=== PATIENT | male | born 1995 | race Caucasian/White ===

== ENCOUNTER 2016-11-17 20:59 | Emergency (ER) | payer BC, OTHER ==
[2016-11-17] MEDS ORDERED: MAG HYDROX/ALUMINUM HYD/SIMETH 30 ML UDC PO ONE (21:33)
[2016-11-17] MEDS ORDERED: BELLADONNA ALKALOIDS/PHENOBARB 60 ML BTL PO ONE (21:33)
[2016-11-17] MEDS ORDERED: LIDOCAINE HCL 20 ML UDC PO ONE (21:33)
--- NOTE | 2016-11-17 21:39 | ERNOTE ---
Chest Pain/Cardiac HPI Date of Service: 11/17/16 Chief Complaint: Chest Pain Time Seen by Provider: 11/17/16 21:39 Source: patient Immunizations: IMMUNIZATION HX Immunizations Up to Date Yes History of Influenza Vaccine Yes Hx Pneumococcal Vaccination No Allergies/Adverse Reactions: Allergies No Known Allergies Allergy (Verified 12/19/15 08:16) Home Medications: HOME MEDICATIONS Pantoprazole Sodium [Protonix] 20 mg PO DAILY #30 tab 11/17/16 [Last Taken Unknown] Narrative: Noted a sharp, mild pain at the lower chest at about 1630 hours, then began to improve. He has had similar pain for several months, but thought that he would just get it checked on this occasion. There was not radiation to the pain, shortness of breath, diaphoresis, N/V. No medications were tried prior to coming to the ED. Denies any heart disease, GERD, or trauma. Timing: intermittent Severity/Quality: mild Location: substernal Chest Pain Radiation: no radiation Activities at Onset: none Modifying Factors - Improves: Present: nothing Modifying Factors - Worsens: Present: nothing Nitro Today/Relief: no nitro taken today Aspirin Treatment Today: no aspirin today Associated Symptoms: Present: denies symptoms Prior Chest Pain/Cardiac Workup: Reports: prior chest pain Review of Systems - Review of Systems Constitutional: Present: no symptoms reported EYE: Present: no symptoms reported ENT: Present: no symptoms reported Respiratory: Present: no symptoms reported Cardiology: Present: no symptoms reported Gastrointestinal/Abdominal: Present: no symptoms reported Genitourinary: Present: no symptoms reported Musculoskeletal: Present: no symptoms reported Skin: Present: no symptoms reported Neurological: Present: no symptoms reported Endocrine: Present: no symptoms reported Hematologic/Lymphatic: Present: no symptoms reported - Patient's Past Medical History Patient History - Medical: No pertinent hx Patient History - Cardiac/Respiratory: No pertinent hx Patient History - Cancer: No Hx of Cancer Patient History - Surgical Procedures: T & A Patient History - Other: None - Social History Living Situations: home Abuse History: No History of abuse Psych History: No pertinent hx Smoking Status: Current every day smoker Have you smoked in the past 12 months: Yes Do you dip or chew tobacco: No Patient requests Smoking Cessation Consult: No Initiate information on Smoking Cessation: No Alcohol Use: occasionally Drug Use: none - Immunizations Immunizations Up to Date: Yes Hx Pneumococcal Vaccination: No History of Influenza Vaccine: Yes Physical Exam - Physical Exam General Appearance: Present: no apparent distress Eye Exam: Normal inspection: bilateral, PERRL: bilateral Ears, Nose, Throat: Present: normal ENT inspection Neck: Present: normal inspection Respiratory: Present: no respiratory distress Cardiovascular/Chest: Present: regular rate, rhythm Gastrointestinal/Abdominal: Present: nontender, nondistended Back Exam: Present: normal inspection Extremity Exam: Present: normal inspection Neurological Exam: Present: alert, oriented, regulator assembler II-XII nml as tested Skin Exam: Present: normal color ED Progress - Results and Orders Patient's Lab Results:: I have reviewed the patient's lab results. - Vital Signs Patient's Vital Signs:: I have reviewed the patient's vital signs. Vital Signs: Vital Signs 11/17/16 21:16 Temperature 36.8 C Pulse Rate 74 Respiratory 15 Rate Blood Pressure 131/65 O2 Sat by Pulse 97 Oximetry - EKG EKG: NSR EKG read: Interp. by me EKG Comments: Rate 73, normal axis. - Progress/Reassessment Chief Complaint: Chest Pain Progress:: Improved Progress Note-Subjective: 11/17/16 23:20 Progressive resolution of the discomfort with the use of the GI cocktail and then Protonix. Asymptomatic at this time. Departure - Departure Clinical Impression: GERD (gastroesophageal reflux disease) Disposition: Home self-care Condition: Good Instructions: Heartburn, [id number] Print Language: Irish Additional Instructions: Try to not eat or drink things that would increase acid in your stomach. Follow up with your physician in 1-2 weeks. Prescriptions: Pantoprazole Sodium [Protonix] 20 mg PO DAILY #30 tab
--- OUTSIDE RECORDS SUMMARY | 2016-11-17 21:47 | XMS REPORT | Continuity of Care Document ---
:1995 Author Organization [facility] ([facility]) Address [address] [place] [address] Phone [phone] Care Team Providers Name Role Phone Sloan Messina Primary Care Provider [phone] Source Comments This disclosure is being made pursuant to the Care Everywhere program, applicable federal and state laws, and may not contain all informaitonavailable regarding this patient.[facility] ([facility]) Active Allergies and Adverse Reactions Not on File Current Medications Not on file Active Problems Not on file Social History Tobacco Use Types Packs/Day Years Used Date Never Assessed Plan of Care Health Maintenance Due Date Last Done Comments Hepatitis B Vaccine (1 of 3 - Primary Series) 1995 HPV Vaccine (1 of 3 - Male 3 Dose Series) 12/20/2006 Tdap Vaccine 12/20/2006 Meningococcal Vaccine (1 of 1) 2011 Lipid Disorder Screening 12/20/2013 MMR Vaccine 12/20/2013 Td Vaccine 12/20/2013 Varicella Vaccine (1 of 2 - Adult - No Evidence of 12/20/2013 Immunity) Influenza Vaccine: Seasonal (#1) 03/05/2016 Results from Last 3 Months Not on file
[2016-11-17] MEDS ORDERED: PANTOPRAZOLE SODIUM 40 MG TABLET.EC PO ONE (22:02)
[2016-11-17] MEDS ORDERED: PANTOPRAZOLE SODIUM 20 MG TABLET.DR ONE (22:05)
[2016-11-17 23:31] VITALS: BP 111/53
== END 2016-11-17 23:29 | disposition home or self-care (01) ==
LOC: ER 20:59
DX: K21.9 Gastro-esophageal reflux disease without esophagitis (principal); F17.210 Nicotine dependence, cigarettes, uncomplicated

== ENCOUNTER 2016-12-09 21:42 | Emergency (ER) | payer BC, OTHER ==
[2016-12-09 21:54] VITALS: BP 135/74
[2016-12-09] MEDS ORDERED: ACETAMINOPHEN 325 MG TABLET ONE (22:09)
[2016-12-09] MEDS ORDERED: ACETAMINOPHEN 325 MG TABLET PO ONE (22:10)
[2016-12-09] MEDS ORDERED: AZITHROMYCIN 250 MG TABLET ONE (22:13)
[2016-12-09] MEDS ORDERED: ALBUTEROL SULFATE/IPRATROPIUM 3 ML NEBU IH ONE ×2 (22:14)
--- NOTE | 2016-12-09 22:14 | ERNOTE ---
Medical Problem HPI - General Chief Complaint: Flu Symptoms Time Seen by Provider: 12/09/16 22:05 Source: patient Exam Limitations: no limitations - Immun/Allergies/Home Medications Immunizations: IMMUNIZATION HX Immunizations Up to Date Yes History of Influenza Vaccine Yes Hx Pneumococcal Vaccination No Allergies/Adverse Reactions: Allergies No Known Allergies Allergy (Verified 12/09/16 21:54) Home Medications: HOME MEDICATIONS Azithromycin 250 mg PO DAILY #1 tablet 12/09/16 [Last Taken Unknown] guaiFENesin/DEXTROMETHORPHAN [Robitussin-Dm] 5 ml PO TID PRN #1 btl 12/09/16 [ Last Taken Unknown] - History of Present History Narrative: cough and congestion and fever for three days, no shortness of breath Review of Systems - Review of Systems Constitutional: Present: no symptoms reported EYE: Present: no symptoms reported ENT: Present: See HPI Respiratory: Present: See HPI Cardiology: Present: no symptoms reported Gastrointestinal/Abdominal: Present: no symptoms reported Genitourinary: Present: no symptoms reported Musculoskeletal: Present: no symptoms reported Skin: Present: no symptoms reported - Patient's Past Medical History Patient History - Medical: No pertinent hx Patient History - Cardiac/Respiratory: Bronchitis Patient History - Cancer: No Hx of Cancer Patient History - Surgical Procedures: T & A Patient History - Other: None - Social History Living Situations: significant other Abuse History: No History of abuse Psych History: No pertinent hx Smoking Status: Current every day smoker Have you smoked in the past 12 months: Yes Do you dip or chew tobacco: Yes Alcohol Use: occasionally Drug Use: none - Immunizations Immunizations Up to Date: Yes Hx Pneumococcal Vaccination: No History of Influenza Vaccine: Yes Physical Exam - Physical Exam General Appearance: Present: wd/wn, alert, no apparent distress Ears, Nose, Throat: Present: normal ENT inspection Neck: Present: normal inspection, nontender Respiratory: Present: lungs clear - however deep inspiration leads to coughing . No wheezing. no respiratory distress, no rales Cardiovascular/Chest: Present: regular rate, rhythm, no murmur, normal peripheral pulses ED Progress - Results and Orders Patient's Lab Results:: I have reviewed the patient's lab results. - Vital Signs Patient's Vital Signs:: I have reviewed the patient's vital signs. Vital Signs: Vital Signs 12/09/16 21:49 Temperature 38.0 C H Pulse Rate 131 H Respiratory 15 Rate Blood Pressure 135/74 O2 Sat by Pulse 97 Oximetry - Progress/Reassessment Chief Complaint: Flu Symptoms Departure - Departure Clinical Impression: Bronchitis Disposition: Home self-care Condition: Good Instructions: Acute Bronchitis Prescriptions: Azithromycin 250 mg PO DAILY #1 tablet guaiFENesin/DEXTROMETHORPHAN [Robitussin-Dm] 5 ml PO TID PRN #1 btl PRN Reason: Cough
--- OUTSIDE RECORDS SUMMARY | 2016-12-09 22:14 | XMS REPORT | Continuity of Care Document ---
:1995 Author Organization [facility] ([facility]) Address [address] [place] [address] Phone [phone] Care Team Providers Name Role Phone Sloan Messina Primary Care Provider [phone] Source Comments This disclosure is being made pursuant to the Care Everywhere program, applicable federal and state laws, and may not contain all informaitonavailable regarding this patient.[facility] ([facility]) Active Allergies and Adverse Reactions Not on [...]
[2016-12-09] MEDS ORDERED: AZITHROMYCIN 250 MG TABLET PO ONE (22:20)
== END 2016-12-09 22:32 | disposition home or self-care (01) ==
LOC: ER 21:42
DX: J20.9 Acute bronchitis, unspecified (principal); Z72.0 Tobacco use

== ENCOUNTER 2017-08-05 23:43 | Emergency (ER) | payer BC, OTHER ==
[2017-08-06 00:21] VITALS: BP 114/48
--- NOTE | 2017-08-06 01:22 | ERNOTE ---
ENT HPI Presenting Symptoms: other - sore throat Time Seen by Provider: 08/06/17 01:14 Source: patient, family Exam Limitations: no limitations - Immun/Allergies/Home Medications Immunizations: IMMUNIZATION HX Immunizations Up to Date Yes History of Influenza Vaccine Yes Hx Pneumococcal Vaccination No Allergies/Adverse Reactions: Allergies Allergy/AdvReac Type Severity Reaction Status Date / Time No Known Allergies Allergy Verified 07/31/17 13:35 - History of Present Illness Narrative: Onset upon awakening this morning. worsened throughout the day. some difficulty swallowing Severity: Present: moderate ENT Location: Present: mouth Prearrival Treatment: Present: over the counter meds - helped slightly Associated Symptoms - ENT: Denies: fever Review of Systems - Review of Systems Constitutional: Present: recent illness, chills. Absent: fever EYE: Present: no symptoms reported ENT: Present: nose congestion, sore throat Respiratory: Present: cough Cardiology: Present: no symptoms reported Gastrointestinal/Abdominal: Present: no symptoms reported Genitourinary: Present: no symptoms reported Musculoskeletal: Present: no symptoms reported Skin: Absent: rash Neurological: Present: no symptoms reported Endocrine: Present: no symptoms reported Hematologic/Lymphatic: Present: no symptoms reported Psych: Present: no symptoms reported - Patient's Past Medical History Patient History - Medical: No pertinent hx Patient History - Cardiac/Respiratory: Bronchitis Patient History - Cancer: No Hx of Cancer Patient History - Surgical Procedures: T & A Patient History - Other: None - Social History Living Situations: significant other Abuse History: No History of abuse Psych History: No pertinent hx Smoking Status: Current every day smoker Have you smoked in the past 12 months: Yes Do you dip or chew tobacco: Yes - Occassionally Patient requests Smoking Cessation Consult: No Initiate information on Smoking Cessation: No Alcohol Use: occasionally Drug Use: marijuana - Immunizations Immunizations Up to Date: Yes Hx Pneumococcal Vaccination: No History of Influenza Vaccine: Yes Physical Exam - Physical Exam General Appearance: Present: wd/wn, alert, no apparent distress Head Exam: Present: normal inspection, no evidence of injury Ears, Nose, Throat: Present: pharyngeal erythema - mild, other - bilateral submandibular gland swelling. Absent: nasal congestion, tonsillar swelling Neck: Present: normal inspection, nontender Respiratory: Present: no respiratory distress, no accessory muscle use Extremity Exam: Present: normal inspection, normal range of motion Neurological Exam: Present: alert, oriented, normal mood/affect, no motor/ sensory deficits Skin Exam: Present: normal color, warm/dry Lymphatic Exam: Present: no adenopathy ED Progress - Results and Orders Patient's Lab Results:: I have reviewed the patient's lab results. Results and Orders: Laboratory Tests 08/06/17 01:25 Group A Strep Rapid Negative - Vital Signs Patient's Vital Signs:: I have reviewed the patient's vital signs. Vital Signs: Vital Signs 08/06/17 00:13 Temperature 36.9 C Pulse Rate 66 Respiratory 18 Rate Blood Pressure 114/48 - Progress/Reassessment Chief Complaint: Sore Throat Progress:: Unchanged Departure Clinical Impression: Salivary duct obstruction Upper respiratory infection Qualifiers: URI type: unspecified URI Qualified Code(s): J06.9 - Acute upper respiratory infection, unspecified - Departure Disposition: Home Follow Up Needed Condition: Good Instructions: Salivary Stone, Upper Respiratory Infection, Adult, [id number] Additional Instructions: Suck on something sour or that otherwise makes your mouth water. If it is a virus it may take 3-5 days to resolve. If you are not better in 5-7 days make an appointment with your primary care provider for further testing.
== END 2017-08-06 02:00 | disposition home or self-care (01) ==
LOC: ER 23:43
DX: K11.8 Other diseases of salivary glands; J06.9 Acute upper respiratory infection, unspecified; F17.200 Nicotine dependence, unspecified, uncomplicated